=== PATIENT | male | born 1950 | race Caucasian/White ===

== ENCOUNTER 2017-05-03 00:09 | Inpatient (IN) | payer MEDICARE, OTHER ==
[~2017-05-03] VITALS: Ht 180.3 cm; Wt 94.3 kg
[2017-05-03 02:38] LABS: HEMOGLOBIN 12.3 gm/dl (14.0-17.5); RED BLOOD COUNT 4.4 M/UL (4.20-5.50); WHITE BLOOD COUNT 16.8 K/UL (4.5-11.0)
[2017-05-03 03:13] LABS: BUN/CREATININE RATIO 17 (0-10)
[2017-05-03] MEDS ORDERED: MELOXICAM15 MG PO (15:14)
[2017-05-03] MEDS ORDERED: LISINOPRIL10 MG PO (15:14)
[2017-05-03] MEDS ORDERED: NEURONTIN 300300 MG PO (15:15)
[2017-05-03] MEDS ORDERED: HYDROCHLOROTH12.5 MG PO (15:15)
[2017-05-03] MEDS ORDERED: ALFUZOSIN HCL E10 MG PO (15:16)
[2017-05-03] MEDS ORDERED: PRILOSEC OTC20 MG PO (15:18)
[2017-05-03] MEDS ORDERED: ARNUITY ELLIP200 MCG INH (15:34)
[2017-05-04 02:39] LABS: HEMOGLOBIN 11.2 gm/dl (14.0-17.5); RED BLOOD COUNT 4.03 M/UL (4.20-5.50)
[2017-05-04] MEDS ORDERED: NORCO 7.5-3251 EACH PO (18:12)
--- NOTE | 2017-05-04 19:49 | NUR ---
THE PATIENT COULD BE DISCHARGED FROM SURGERY PERSPECTIVE SO I CALLED TO TELL HIM THIS AND HE CAME TO THE FLOOR TO DISCHARGE THE PATIENT. AFTER DISCONTINUING THE IV AND TAKING OUT HIS ELENA DRAIN IN HIS RIGHT SIDE, I CHECKED HIS VITALS SIGNS FOR DISCHARGE. HIS OXYGEN LEVEL WOULD NOT RISE ABOVE 84% ON ROOM AIR. I CALLED THE DOCTOR AND HE STATED TO HOLD THE DISCHARGE AND TRY TO TITRATE THE PATIENT DOWN TONIGHT. HE STATED TO CHECK THE PATIENT'S OXYGEN SATURATION ON ROOM AIR IN THE MORNING AND IF LESS THAN 90%, SET UP HOME OXYGEN.
== END 2017-05-05 18:16 | disposition home or self-care (01) | DRG 853 ==
LOC: ER1 00:09 → M/S 05:43 → ZEROF 05:43 → M/S 13:57
PROVIDERS: Student in an Organized Health Care Education/Training Program; Surgery; ADMIT Internal Medicine
PROC: 0FT44ZZ Resection of Gallbladder, Percutaneous Endoscopic Approach (ICD-10-PCS; principal; 2017-05-03 15:30)
DX: A41.9 Sepsis, unspecified organism (principal); J95.2 Acute pulmonary insufficiency following nonthoracic surgery; K80.12 Calculus of gallbladder with acute and chronic cholecystitis without obstruction; E87.6 Hypokalemia; I10 Essential (primary) hypertension; N40.0 Benign prostatic hyperplasia without lower urinary tract symptoms; K21.9 Gastro-esophageal reflux disease without esophagitis; Y83.8 Other surgical procedures as the cause of abnormal reaction of the patient, or of later complication, without mention of misadventure at the time of the procedure; E78.5 Hyperlipidemia, unspecified; G89.29 Other chronic pain; M19.90 Unspecified osteoarthritis, unspecified site; Z87.442 Personal history of urinary calculi; Z79.899 Other long term (current) drug therapy; Z79.891 Long term (current) use of opiate analgesic; Y92.239 Unspecified place in hospital as the place of occurrence of the external cause
CPT/HCPCS: 36415; 71010; 76705; 80053; 81001; 82550; 82553; 83540; 83550; 83605; 83690; 83735; 83874; 84100; 84484; 85025; 85027; 87040; 87086; 93005; 96374; 96375; 99285; C9113; J1100; J1650; J1885; J1956; J2250; J2270; J2405; J2543; J2710; J3010; J3370; J7030; J7050; J7120; Q9962